=== PATIENT | female | born 1945 | race Caucasian/White ===

== ENCOUNTER 2016-10-31 15:53 | Inpatient (IN) | payer MEDICARE, OTHER ==
--- NOTE | ~2016-10-31 | DS ---
Unit #: [id number] #: [id number] Patient: SUE CORONA [id number] [address] [place], [place] [address] [id number] I MR#: [id number] NAME: SUE CORONA. ROOM: [facility] Age: 71 Sex: F Admission Date: 10/31/2016 : 1945 Discharge Date: 11/05/2016 Attending Physician: Devon Lorenzo M.D. Referring Physician: Devon Lorenzo M.D. Primary Care Physician: Yakelin Mg M.D. DISCHARGE SUMMARY FINAL DIAGNOSES 1. Acute right lower lobe pneumonia. 2. Acute exacerbation of bronchiectasis. 3. Acute exacerbation of asthma. 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 PROCEDURE None. HISTORY OF PRESENT ILLNESS Ms. Corona is a 71 year old with a history of asthma, who had a recent CAT scan consistent with right lower lobe bronchiectasis and a right lower lobe infiltrate. She presented to my office with cough and increased shortness of air, although she was not really coughing up anything truly purulent. Nonetheless, I felt that she had exacerbation of bronchiectasis as well as pneumonia. In the office, she had very significant inspiratory and expiratory wheezes and she had severe bronchospasm. She was admitted, started on IV steroids, IV antibiotics, and we tried to get her to expectorate better with Mini nebs with saline and even tried a vest. She improved and is ready for discharge. She is maintained on chronic Coumadin and her PT was 21, INR 2 on admission. I have not repeated that. Sugars have been a little high with a level of 229, but prior to that they have been pretty well maintained at 164, 124, 118, and 101. We have decreased her Solu-Medrol and switched her to oral steroid, i.e. prednisone. She was on cefepime and switched to cefdinir. She will be discharged today and will be on the following medicines. DISCHARGE MEDICATIONS 1. Prednisone 30 mg daily, decreasing by 10 mg every three days, except she did get 40 today. 2. Colestipol 1000 mg p.o. daily which is a home medicine. 3. Lopressor 25 mg p.o. b.i.d. 4. Cefdinir 300 mg p.o. b.i.d. 5. Myrbetriq 25 mg p.o. daily. 6. Hydrocodone/acetaminophen 10/325 q.12 p.r.n. 7. Tramadol 50 mg q.8 p.r.n. 8. Aldactone 25 mg p.o. daily. 9. Omeprazole 40 mg p.o. daily. 10. Synthroid 0.125 mg daily. 11. Vitamin D 1000 mg p.o. daily. 12. DuoNeb q.i.d. although we will make these p.r.n. Unit #: [id number] #: [id number] Patient: SUE CORONA DISCHARGE INSTRUCTIONS 1. She should follow up with me in two weeks. 2. She should follow up with her home physician. 3. She should continue her Cozaar 50 mg daily if that was a home medicine. 4. I will see her back in two weeks and she will maintain a consistent carbohydrate diet. 5. She has not been on oxygen now and does not need it at home. Dictated by... Tunde Mills/doris TD: 11/06/2016 10:44 JOB #: [id number] DISCHARGE SUMMARY Page 1 of 1 X Devon Lorenzo MD X DISCHARGE SUMMARY
--- NOTE | ~2016-10-31 | BMI ---
[facility] Nutrition Therapy DATE: 11/01/16 Patient: SUE CASTANEDAIFFORD Physician: VALERIY Address: [address] [place] [address] Room/Bed: [address] [place] [address], Zip: [place] [address] Admit Date: 10/31/16 Date of : [birth year] Height: 5 5 Weight: 261 118.6 HIGH BMI NOTE: DX: 71 y/o female admitted with bronchitis ANTHROPOMETRICS: Ht: 65", Wt: 261 lbs, BMI: 43.4 DIET: Consistent carb INTERVENTION: change diet to HH, meds/fluids per MD RECOMMENDATIONS: Patient has no history of DM and glucose pretty well controlled; consider changing diet to healthy heart to promote a gradual weight loss towards a healthy BMI range. Respectfully, Felicia Aguilar RD, LD [facility] cc: client file
--- NOTE | ~2016-10-31 | CR63 ---
[facility] A Service of [facility] & [facility] RADIOLOGY TEXT RESULTS PATIENT: SUE GRAF LOCATION: [facility] 306- : 45 UNIT #: [id number] AGE: [address]: Devon Lorenzo MD SEX: F ORDER DR: [id number] [facility] [address] [facility]. [place], [place] [address] [id number] I MR#: [id number] Acc #: [id number] NAME: SUE GRAF. : 1945 SEX: F STUDY DATE/TIME: 11/03/2016 7:20 UNIT: [address] ROOM: [facility] STUDY DESCRIPTION: CR Chest 2 View Attending Physician: Devon Lorenzo M.D. Referring Physician: Devon Lorenzo M.D. Ordering Physician: Devon Lorenzo M.D. Primary Care Physician: Yakelin Mg M.D. MEDICAL IMAGING REPORT This report is preliminary unless electronic signature is present EXAM PA and lateral chest and 2 views, 11/03/2016. CLINICAL HISTORY Short of air, cough and congestion for one week. FINDINGS There has been prior sternotomy and bypass. Some linear density posteromedially in the right lung is likely atelectasis or possibly scarring but there is no consolidation or effusion or pneumothorax. Heart size is within normal limits. IMPRESSION 1. Posteromedial right linear density likely scarring or atelectasis, less likely infiltrate. 2. Status post sternotomy and bypass, otherwise, negative PA and lateral chest. Dictated by... Anjum Negron M.D. THIS IS AN ELECTRONICALLY VERIFIED REPORT Anjum Negron M.D. at 11/05/2016 10:31 AM TEV/bd TD: 11/03/2016 13:48 JOB #: [id number] MEDICAL IMAGING REPORT Page 1 of 1 COPY
--- NOTE | ~2016-10-31 | HP ---
Unit #: [id number] #: [id number] Patient: SUE CORONA [id number] [id number] [facility]. [place], [place] [address] [id number] I MR#: [id number] NAME: SUE CORONA. ROOM: [facility] Age: 71 Sex: F Admission Date: 10/31/2016 : 1945 Attending Physician: Devon Lorenzo M.D. Referring Physician: Devon Lorenzo M.D. Primary Care Physician: Yakelin Mg M.D. HISTORY AND PHYSICAL HISTORY OF PRESENT ILLNESS Miss Corona is a 71-year-old female with a history of asthma, who presented to the office today complaining of increasing shortness of air. In reality, she has had multiple bouts of respiratory tract infections lately and I saw her back in 10/20/2016 and suspected she could have bronchiectasis. I had actually already set up a CT scan that was done 10/30/2016. Meanwhile, she was worse at least about a week ago and she went to immediate care on Thursday, I believe. She actually said she had been short of breath since the day before. Immediate care apparently gave her a shot of Decadron and prednisone but did not give her an antibiotic. She is coughing up clear sputum. However, the cough is significantly worse and her wheezing is significantly worse. She did smoke but she quit 35 years ago. She then had some past smoke exposure even after she herself quit. She denies any chest pain. PAST MEDICAL HISTORY Her past medical history is significant for a mild or moderate persistent asthma. In addition, she has a history of obstructive sleep apnea. She also has a history of hypercholesterolemia, arthritis, hypertension if not already mentioned, mitral valve prolapse. PAST SURGICAL HISTORY Surgeries include heart surgery 12/2015, hysterectomy 1978, breast surgery 1983, joint surgery that is a knee replacement 07/2012, hammer toe surgery 07/2015. MEDICATIONS ON ADMISSION Had included: 1. Metoprolol 25 mg p.o. b.i.d. 2. Omeprazole 40 mg p.o. daily. 3. Tramadol 50 mg I thought t.i.d. but she may take it q.i.d. 4. Aspirin 81 mg p.o. daily. 5. Vitamin D3 1000 units p.o. daily. 6. Synthroid 0.125 mg daily. 7. Premarin, I believe vaginal cream. 8. Breo Ellipta 100/25 one puff daily. 9. Hydrocodone 10/325 probably b.i.d. p.r.n. 10. Myrbetriq 25 mg daily. 11. Spironolactone 25 mg p.o. daily. 12. Coumadin 3 mg p.o. daily. 13. Colestipol 1 g daily. 14. Claritin 10 mg p.o. daily. Unit #: [id number] #: [id number] Patient: SUE CORONA ALLERGIES IV dye. SOCIAL HISTORY She did smoke and quit 35 years ago. FAMILY HISTORY Family history is significant for mom with heart disease and lung disease. REVIEW OF SYSTEMS No weight gain. No weight loss. No fatigue. She does have sleep issues. No visual complaints. No gastroesophageal reflux disease or nausea or indigestion or change in bowel movements. No kidney problems. No bladder issues. She does have back pain. No sores or rashes. No trouble coping. She does have hypothyroidism. No history of burning in her feet. No numbness. All other systems are negative except as mentioned. PHYSICAL EXAMINATION GENERAL APPEARANCE: On exam she presents as an older female in no acute distress. VITAL SIGNS: Temperature was 98.6, pulse is 89, respirations are 16, blood pressure 150/90, saturation 94% on room air. NECK: Without adenopathy. RESPIRATORY: Examination of her lungs reveals that her breathing is mildly labored. She had inspiratory and expiratory wheezes and rhonchi bilaterally throughout. She actually had audible wheezing heard from a few feet away. HEART: Regular. ABDOMEN: Soft and bowel sounds are present. EXTREMITIES: Without edema. NEUROLOGICAL: Neurologically she is awake and alert. DIAGNOSTIC STUDIES IMAGING: She had a CT scan that was done 10/30/2016 at [facility]. She had volume loss and bronchiectasis and consolidation of the posteromedial right lower lobe. The bronchiectasis was described as cylindrical and varicose. This represents a change from 2009. There is also some mild linear opacity inferior right upper lobe which is scarring versus atelectasis and mild linear opacity in the lingula and no change. There was mild linear opacity left lower lobe thought new from a prior study and not consistent with subsegmental atelectasis. There is no suggestion of endobronchial lesions. She had a mass in the right costovertebral junction at approximately T9 2.1 x 1.9 cm and it was possible that this could be a schwannoma or lesion associated with the thoracic spine. IMPRESSION 1. Acute exacerbation of bronchiectasis. 2. Bronchospasm, likely combination of bronchiectasis exacerbation and asthma exacerbation. 3. Acute exacerbation of asthma which is refractory to outpatient care including IM Decadron. 4. Diabetes. 5. Hypertension. 6. Previous heart surgery. PLAN I would like to admit her and treat with IV antibiotics and very brief IV Unit #: [id number] #: [id number] Patient: SUE CORONA steroids. I will ask for blood cultures as well as sputum cultures. Dictated by Tunde Mills/dorothea TD: 10/31/2016 21:12 JOB #: [id number] HISTORY AND PHYSICAL Page 1 of 1 X Devon Lorenzo MD X HISTORY AND PHYSICAL
--- NOTE | ~2016-10-31 | EKG ---
PATIENT: USE GRAF UNIT #: [id number] Ventricular Rate: 82 BPM Atrial Rate: 82 BPM P-R Interval: 134 ms QRS Duration: 88 ms Q-T Interval: 390 ms QTC Calculation(Bezet): 455 ms P [place]: 32 degrees Calculated R [place]: -31 degrees Calculated T [place]: 33 degrees Diagnosis Line: Normal sinus rhythm Diagnosis Line: Left axis deviation Diagnosis Line: Abnormal ECG Diagnosis Line: No previous ECGs available Diagnosis Line: Confirmed by FABIANA CHEEMA MD ([id number]) on Diagnosis Line: 11/02/2016 9:56:25 AM INTERPRETING MD: SALVATORE
[2016-10-31 17:58] LABS: HEMATOCRIT 37.5 % (35.0-45.0); HEMOGLOBIN 12.3 gm/dL (12.0-16.0); MEAN CELL VOLUME 88.7 FL (83-96); MEAN CORPUSCULAR HEMOGLOBIN 29.1 PG (28-34); MEAN CORPUSCULAR HGB CONC 32.8 g/dL (30-36); MEAN PLATELET VOLUME 7.4 FL (6.5-11.5); RED BLOOD COUNT 4.23 X10e (3.90-5.30); RED CELL DISTRIBUTION WIDTH 17.6 % (11.0-15.5); WHITE BLOOD COUNT 10.4 X10e3 (4.0-10.5)
[2016-10-31 18:13] LABS: PROTHROMBIN TIME (PATIENT) 21.7 SECONDS (10.0-11.7)
[2016-10-31 18:20] LABS: ALBUMIN SERUM 3.7 g/dL (3.5-5.0); BILIRUBIN,TOTAL 0.6 mg/dL (0.2-2.0); BUN/CREATININE RATIO 18.33; CALCIUM SERUM 8.5 mg/dL (8.4-10.2); CREATININE SERUM 1.2 mg/dL (0.6-1.4); GLOM FILT RATE Estimated 45.4 mL/min (>60); PROTEIN TOTAL SERUM 7.2 g/dL (6.0-8.3)
[2016-10-31] MEDS ORDERED: LOPRESSOR PO (18:28)
[2016-10-31] MEDS ORDERED: TRAMADOL HCL50 M2 PO (18:29)
[2016-10-31] MEDS ORDERED: OMEPRAZOLE40 M1 PO (18:29)
[2016-10-31] MEDS ORDERED: VITAMIN D 22000 UNIT PO (18:30)
[2016-10-31] MEDS ORDERED: SYNTHROID125 PO (18:30)
[2016-10-31] MEDS ORDERED: SYMBICORT INH (18:31)
[2016-10-31] MEDS ORDERED: LORCET HD 10-31 EACH PO (18:33)
[2016-10-31] MEDS ORDERED: ALDACTONE25 MG PO (18:34)
[2016-10-31] MEDS ORDERED: MYRBETRIQ25 MG PO (18:34)
[2016-10-31] MEDS ORDERED: COUMADIN3 MG PO (18:35)
[2016-10-31] MEDS ORDERED: COLESTIPOL HCL1 GM PO (18:36)
[2016-10-31] MEDS ORDERED: CLARITIN5 MG/5 ML PO (18:37)
[2016-11-02 05:14] LABS: HEMOGLOBIN 12.1 gm/dL (12.0-16.0); MEAN CELL VOLUME 89.4 FL (83-96); MEAN CORPUSCULAR HEMOGLOBIN 28.5 PG (28-34); MEAN CORPUSCULAR HGB CONC 31.9 g/dL (30-36); RED BLOOD COUNT 4.25 X10e (3.90-5.30); RED CELL DISTRIBUTION WIDTH 17.5 % (11.0-15.5); WHITE BLOOD COUNT 11.8 X10e3 (4.0-10.5)
[2016-11-02 05:43] LABS: ALBUMIN SERUM 3.3 g/dL (3.5-5.0); BILIRUBIN,TOTAL 0.7 mg/dL (0.2-2.0); BUN/CREATININE RATIO 22.5; CALCIUM SERUM 8.8 mg/dL (8.4-10.2); CREATININE SERUM 1.2 mg/dL (0.6-1.4); GLOM FILT RATE Estimated 45.4 mL/min (>60); POTASSIUM 4.5 mmol/L (3.5-5.1)
[2016-11-04 12:20] LABS: CALCIUM SERUM 8.2 mg/dL (8.4-10.2); GLOM FILT RATE Estimated 56.7 mL/min (>60); POTASSIUM 4.2 mmol/L (3.5-5.1)
[2016-11-05] MEDS ORDERED: OMNICEF300 MG PO (20:16)
[2016-11-05] MEDS ORDERED: PREDNISONE PO (20:17)
[2016-11-05] MEDS ORDERED: ALBUTEROL MININEB NEB (20:18)
== END 2016-11-05 20:46 | disposition home or self-care (01) | DRG 194 ==
LOC: C3A PCU 15:53
PROVIDERS: Internal Medicine Pulmonary Disease
DX: J18.9 Pneumonia, unspecified organism (principal); J47.1 Bronchiectasis with (acute) exacerbation; E11.9 Type 2 diabetes mellitus without complications; J45.41 Moderate persistent asthma with (acute) exacerbation; Z87.891 Personal history of nicotine dependence; G47.33 Obstructive sleep apnea (adult) (pediatric); I10 Essential (primary) hypertension; E78.00 Pure hypercholesterolemia, unspecified; M19.90 Unspecified osteoarthritis, unspecified site; Z79.01 Long term (current) use of anticoagulants; Z91.041 Radiographic dye allergy status; Z82.49 Family history of ischemic heart disease and other diseases of the circulatory system; Z83.6 Family history of other diseases of the respiratory system
CPT/HCPCS: 71020; 80048; 80053; 82947; 85027; 85610; 87040; 87070; 87205; 93005; 94640; 94664; 94667; 94668; 94760; G0238; J0456; J0692; J1815; J2920